=== PATIENT | female | born 1985 | race Caucasian/White ===

== ENCOUNTER 2018-08-10 03:04 | Emergency (ER) | payer MEDICAID, SELFPAY ==
[2018-08-10] VITALS (8 sets, daily range): BP systolic 97–138; BP diastolic 64–84; PULSE 83–104; RESP 16–30; TEMP 37.6; O2SAT 99–100
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
[2018-08-10] MEDS: Ibuprofen 600 MG TAB PO (03:17)
[2018-08-10] MEDS: Ondansetron O.D.T. 4 MG TABEF PO (03:18)
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
== END 2018-08-10 04:37 | disposition home or self-care (01) ==
LOC: ER 04:38
PROVIDERS: Emergency Provider Emergency Medicine; PCP Family Medicine
DX: S09.90XA Unspecified injury of head, initial encounter (principal); S16.1XXA Strain of muscle, fascia and tendon at neck level, initial encounter; S30.0XXA Contusion of lower back and pelvis, initial encounter; Y35.813A Legal intervention involving manhandling, suspect injured, initial encounter; V48.9XXA Unspecified car occupant injured in noncollision transport accident in traffic accident, initial encounter
CPT/HCPCS: 99285; 70450; 72125; 72131